=== PATIENT | male | born 1975 | race African-American/Black ===

== ENCOUNTER 2019-03-15 18:37 | Emergency (ER) | payer OTHER ==
[~2019-03-15] VITALS: Ht 177.8 cm; Wt 74.6 kg
[2019-03-15 18:42] VITALS: BP 125/77
== END 2019-03-15 19:49 | disposition home or self-care (01) ==
LOC: ED 19:40
DX: S62.606A Fracture of unspecified phalanx of right little finger, initial encounter for closed fracture (principal); X58.XXXA Exposure to other specified factors, initial encounter; Y93.89 Activity, other specified; Y92.89 Other specified places as the place of occurrence of the external cause; Y99.8 Other external cause status
CPT/HCPCS: 29130; 99283